=== PATIENT | female | born 1960 | race African-American/Black ===

== ENCOUNTER 2021-05-03 11:52 | Emergency (ER) | payer BC ==
[~2021-05-03] VITALS: Ht 157.5 cm; Wt 73.0 kg
[2021-05-03] MEDS ORDERED: VISCOUS LIDOCAINE 2% 15 ML UDC PO STA (12:15)
[2021-05-03] MEDS ORDERED: SODIUM CHLORIDE 0.9% 1,000 ML IV ONE (12:15)
[2021-05-03] MEDS ORDERED: FAMOTIDINE 20MG/2ML VIAL IV STA (12:15)
[2021-05-03] MEDS ORDERED: MAGNESIUM/ALUMINUM HYDROXIDE/SIMETHICONE 30ML UDC PO STA (12:15)
[2021-05-03] MEDS ORDERED: ONDANSETRON HCL 4MG/2ML INJ IV STA (12:15)
[2021-05-03 14:06] LABS: CLARITY URINE CLOUDY (CLEAR); COLOR URINE YELLOW (YELLOW); KETONES URINE NEGATIVE (NEGATIVE); LEUKOCYTE ESTERASE URINE 2+ (NEGATIVE); NITRITE URINE NEGATIVE (NEGATIVE); OCCULT BLOOD URINE NEGATIVE (NEGATIVE); PROTEIN URINE 1+ (NEGATIVE); SPECIFIC GRAVITY URINE 1.017 (1.005-1.030); UROBILINOGEN URINE 0.2 E.U./dL (0.2-1.0)
[2021-05-03 14:09] LABS: BASOPHILS % 0.2 % (0.0-2.0); EOSINOPHILS % 0.4 % (0.0-5.0); HEMATOCRIT. 33.4 % (36.0-48.0); LYMPHOCYTES % 14.6 % (20.0-50.0); MEAN CORPUSCULAR VOLUME 90.8 fL (81.0-99.0); MEAN PLATELET VOLUME 7.6 fl (7.4-10.4); MONOCYTES % 10.1 % (2.0-8.0); NEUTROPHILS % 74.7 % (40.0-76.0); PLATELET 423 x1000/uL (130-400); RED BLOOD CELL COUNT 3.67 mill/uL (4.2-5.4); RED CELL DISTRIBUTION WIDTH 13.9 % (11.6-14.6)
[2021-05-03 14:16] LABS: CHLORIDE 109 mEq/L (98-107)
[2021-05-03] MEDS ORDERED: ACETAMINOPHEN 325MG TABLET PO ONE (16:00)
[2021-05-03] MEDS ORDERED: CIPR-263 MT (16:01)
[2021-05-03 16:17] VITALS: BP 155/70
== END 2021-05-03 16:57 | disposition home or self-care (01) ==
LOC: ER 11:52
DX: N39.0 Urinary tract infection, site not specified (principal); R50.9 Fever, unspecified; R11.2 Nausea with vomiting, unspecified; J45.909 Unspecified asthma, uncomplicated; I10 Essential (primary) hypertension; Z20.822 Contact with and (suspected) exposure to COVID-19
CPT/HCPCS: 36415; 71045; 74176; 76705; 80053; 81003; 83690; 85025; 87086; 87106; 87186; 93005; 96361; 96374; 96375; 99285; C9803; J2405; J3490; J7030; U0003; U0005

== ENCOUNTER → 2021-08-17 | Outpatient (CLI) | payer BC ==
[~2021-08-17] MED LIST: CIPR-263 MT
[2021-08-17 13:14] LABS: CHLORIDE 108 mEq/L (98-107)
[2021-08-17 13:20] LABS: CLARITY URINE CLEAR (CLEAR); COLOR URINE YELLOW (YELLOW); KETONES URINE NEGATIVE (NEGATIVE); LEUKOCYTE ESTERASE URINE 1+ (NEGATIVE); NITRITE URINE NEGATIVE (NEGATIVE); OCCULT BLOOD URINE NEGATIVE (NEGATIVE); PROTEIN URINE NEGATIVE (NEGATIVE); UROBILINOGEN URINE 0.2 E.U./dL (0.2-1.0)
== END | disposition home or self-care (01) ==
LOC: LAB 12:44
PROVIDERS: ATTEND Internal Medicine
DX: E78.5 Hyperlipidemia, unspecified (principal); R73.09 Other abnormal glucose; E55.9 Vitamin D deficiency, unspecified; N39.0 Urinary tract infection, site not specified
CPT/HCPCS: 36415; 80053; 81003; 82306; 83036; 84443

== ENCOUNTER → 2022-09-22 | Outpatient (CLI) | payer BC ==
[~2022-09-22] MED LIST changes: +ALBU18HF2 IH; +CELE200C PO; +HYDR-4005 PO; +LEVO150T8 PO; +PROT40 PO; +TIZA4CAP6 PO; +ZOLP12.52 PO
[2022-09-22 11:29] LABS: BASOPHILS % 0.3 % (0.0-2.0); HEMATOCRIT. 40.3 % (36.0-48.0); HEMOGLOBIN. 13.4 g/dL (12.0-16.0); LYMPHOCYTES % 35.1 % (20.0-50.0); MEAN CORPUSCULAR HEMOGLOBIN 31.2 pg (28.0-32.0); MEAN CORPUSCULAR VOLUME 94.1 fL (81.0-99.0); MEAN PLATELET VOLUME 7.3 fl (7.4-10.4); MONOCYTES % 9.2 % (2.0-8.0); NEUTROPHILS % 54.4 % (40.0-76.0); PLATELET 300 x1000/uL (130-400); RED BLOOD CELL COUNT 4.29 mill/uL (4.2-5.4); RED CELL DISTRIBUTION WIDTH 13.6 % (11.6-14.6)
[2022-09-22 11:37] LABS: CHLORIDE 109 mEq/L (98-107)
[2022-09-22 11:39] LABS: PARTIAL THROMBOPLASTIN TIME 31.2 sec (23.4-31.0); PROTHROMBIN TIME 10.5 sec (9.6-11.0)
[2022-09-22 11:45] LABS: CLARITY URINE CLEAR (CLEAR); COLOR URINE YELLOW (YELLOW); KETONES URINE TRACE (NEGATIVE); LEUKOCYTE ESTERASE URINE NEGATIVE (NEGATIVE); NITRITE URINE NEGATIVE (NEGATIVE); OCCULT BLOOD URINE NEGATIVE (NEGATIVE); PH URINE 5.5 (4.5-8.0); PROTEIN URINE NEGATIVE (NEGATIVE); UROBILINOGEN URINE 0.2 E.U./dL (0.2-1.0)
== END | disposition home or self-care (01) ==
LOC: LAB 10:47
PROVIDERS: ATTEND Internal Medicine
DX: Z01.812 Encounter for preprocedural laboratory examination (principal); J98.11 Atelectasis; E78.5 Hyperlipidemia, unspecified; N39.0 Urinary tract infection, site not specified; R73.09 Other abnormal glucose
CPT/HCPCS: 36415; 71046; 80053; 81003; 83036; 85025

== ENCOUNTER 2022-09-28 10:27 | Day surgery (SDC) | payer BC ==
[~2022-09-28] VITALS: Ht 157.5 cm; Wt 74.8 kg
[~2022-09-28 10:27] MED LIST changes: -ALBU18HF2 IH; -CELE200C PO; -HYDR-4005 PO; -LEVO150T8 PO; -PROT40 PO; -TIZA4CAP6 PO; -ZOLP12.52 PO
[2022-09-28] MEDS ORDERED: LACTATED RINGERS 1,000 ML IV SCH (11:25)
[2022-09-28] MEDS ORDERED: KETOROLAC 30MG/ML VIAL ONE (11:37)
[2022-09-28] MEDS ORDERED: ROPIVACAINE HCL 1% 20 ML VIAL EPI ONE (11:37)
[2022-09-28] MEDS ORDERED: EPINEPHRINE 1:1000 1 MG/ML AMP ONE (11:37)
[2022-09-28] MEDS ORDERED: LIDOCAINE HCL/EPINEPHRINE 1%-EPI 1:100,000 20 ML VIAL ONE (11:40)
[2022-09-28] MEDS ORDERED: CELE200C PO (11:48)
[2022-09-28] MEDS ORDERED: LEVO150T8 PO (11:48)
[2022-09-28] MEDS ORDERED: ZOLP12.52 PO (11:48)
[2022-09-28] MEDS ORDERED: TIZA4CAP6 PO (11:48)
[2022-09-28] MEDS ORDERED: HYDR-4005 PO ×2 (11:48)
[2022-09-28] MEDS ORDERED: PROT40 PO (11:48)
[2022-09-28] MEDS ORDERED: ALBU18HF2 IH (11:48)
[2022-09-28] MEDS ORDERED: ONDANSETRON HCL 4MG/2ML INJ ONE (12:48)
[2022-09-28] MEDS ORDERED: DEXAMETHASONE 4MG/ML 1ML VIAL ONE (12:48)
[2022-09-28] MEDS ORDERED: LIDOCAINE HCL 1% 10 MG/ML 10ML VIAL ONE (12:48)
[2022-09-28] MEDS ORDERED: PROPOFOL 200MG/20ML VIAL IV ONE (12:49)
[2022-09-28] MEDS ORDERED: FENTANYL CITRATE/PF 50MCG/ML 2ML VIAL ONE (12:49)
[2022-09-28] MEDS ORDERED: MIDAZOLAM HCL 2 MG/2 ML VIAL ONE (12:49)
[2022-09-28] MEDS ORDERED: VANCOMYCIN HCL 1 GM/VIAL ONE (13:30)
[2022-09-28] MEDS ORDERED: HYDROMORPHONE HCL/PF 2MG/ML CPJ ONE (13:39)
[2022-09-28] MEDS ORDERED: NALOXONE HCL 0.4 MG/ML 1ML VIAL ONE (14:43)
[2022-09-28] MEDS ORDERED: LABETALOL 5MG/ML SYR 20 MG/4 ML SYRINGE IV PRN (14:45)
[2022-09-28] MEDS ORDERED: MEPERIDINE HCL/PF 25MG/ML CPJ IV PRN (14:45)
[2022-09-28] MEDS ORDERED: ONDANSETRON HCL 4MG/2ML INJ IV PRN (14:45)
[2022-09-28] MEDS: HYDROMORPHONE HCL/PF 2MG/ML CPJ IV PRN ×5 (15:00→15:53)
[2022-09-28] MEDS ORDERED: KETOROLAC 30MG/ML VIAL IV NR (15:45)
[2022-09-28] MEDS ORDERED: HYDROCODONE/ACETAMINOPHEN 10/325MG TABLET PO PRN (15:45)
[2022-09-28] MEDS ORDERED: HYDROMORPHONE HCL/PF 2MG/ML CPJ IV PRN (16:15)
[2022-09-28 16:38] VITALS: BP 148/74
== END 2022-09-28 17:30 | disposition home or self-care (01) ==
LOC: OR 10:27
PROVIDERS: ATTEND Student in an Organized Health Care Education/Training Program
DX: S52.131A Displaced fracture of neck of right radius, initial encounter for closed fracture (principal); J45.909 Unspecified asthma, uncomplicated; Z79.899 Other long term (current) drug therapy; Z98.890 Other specified postprocedural states; X58.XXXA Exposure to other specified factors, initial encounter; Y93.89 Activity, other specified; Y92.89 Other specified places as the place of occurrence of the external cause; Y99.8 Other external cause status
CPT/HCPCS: 24666; 73070; 76000; 88307; 88311; J1100; J1170; J1885; J2250; J2310; J2405; J2704; J3010; J3370; J3490; 87426; A4565; C9803; J2795; C1776

== ENCOUNTER → 2022-10-10 | Outpatient (CLI) | payer BC ==
[~2022-10-10] MED LIST changes: +ALBU18HF2 IH; +CELE200C PO; +HYDR-4005 PO; +LEVO150T8 PO; +PROT40 PO; +TIZA4CAP6 PO; +ZOLP12.52 PO
== END | disposition home or self-care (01) ==
LOC: RAD 13:32
PROVIDERS: ATTEND Student in an Organized Health Care Education/Training Program
DX: S52.131A Displaced fracture of neck of right radius, initial encounter for closed fracture (principal); X58.XXXA Exposure to other specified factors, initial encounter; Y93.89 Activity, other specified; Y92.89 Other specified places as the place of occurrence of the external cause; Y99.8 Other external cause status; Z98.890 Other specified postprocedural states
CPT/HCPCS: 73080

== ENCOUNTER → 2022-11-15 | Outpatient (CLI) | payer BC ==
[2022-11-15 11:46] LABS: BASOPHILS % 0.3 % (0.0-2.0); EOSINOPHILS % 1.2 % (0.0-5.0); HEMATOCRIT. 36.5 % (36.0-48.0); LYMPHOCYTES % 46.3 % (20.0-50.0); MEAN CORPUSCULAR HEMOGLOBIN 30.7 pg (28.0-32.0); MEAN CORPUSCULAR VOLUME 93.3 fL (81.0-99.0); MEAN PLATELET VOLUME 7.3 fl (7.4-10.4); MONOCYTES % 11.5 % (2.0-8.0); NEUTROPHILS % 40.7 % (40.0-76.0); PLATELET 332 x1000/uL (130-400); RED BLOOD CELL COUNT 3.91 mill/uL (4.2-5.4); RED CELL DISTRIBUTION WIDTH 14.1 % (11.6-14.6)
[2022-11-15 12:28] LABS: CHLORIDE 108 mEq/L (98-107)
[2022-11-17 09:07] LABS: % CD 3 POS. LYMPHOCYTES 79.8 % (57.5-86.2); % CD 4 POS. LYMPHOCYTES 27.1 % (30.8-58.5); % CD 8 POS. LYMPH 50.4 % (12.0-35.5); ABSOLUTE CD 3 1995 /uL (622-2402); ABSOLUTE CD 4 HELPER 678 /uL (359-1519); ABSOLUTE CD 8 SUPPRESSOR 1260 /uL (109-897); ABSOLUTE EOSINOPHILS 0.1 x10E3/uL (0.0-0.4); ABSOLUTE LYMPHOCYTES 2.5 x10E3/uL (0.7-3.1); ABSOLUTE MONOCYTES 0.6 x10E3/uL (0.1-0.9); BASOPHILS 0 % (Not Estab.); CD4/CD8 RATIO 0.54 (0.92-3.72); HEMATOCRIT 38.2 % (34.0-46.6); HEMOGLOBIN 12.2 g/dL (11.1-15.9); IMMATURE GRANULOCYTES 0 % (Not Estab.); LYMPHOCYTES 49 % (Not Estab.); MEAN CORPUSCULAR HEMOGLOBIN 30.4 pg (26.6-33.0); MEAN CORPUSCULAR HGB CONC. 31.9 g/dL (31.5-35.7); MEAN CORPUSCULAR VOLUME 95 fL (79-97); MONOCYTES 12 % (Not Estab.); NEUTROPHILS 38 % (Not Estab.); PLATELETS 340 x10E3/uL (150-450); RBC 4.01 x10E6/uL (3.77-5.28); RED CELL DISTRIBUTION WIDTH 12.8 % (11.7-15.4); WBC 5.2 x10E3/uL (3.4-10.8)
== END | disposition home or self-care (01) ==
LOC: LAB 10:39
PROVIDERS: ATTEND Internal Medicine
DX: S52.131A Displaced fracture of neck of right radius, initial encounter for closed fracture (principal); B20 Human immunodeficiency virus [HIV] disease; X58.XXXA Exposure to other specified factors, initial encounter; Y93.89 Activity, other specified; Y92.89 Other specified places as the place of occurrence of the external cause; Y99.8 Other external cause status; Z98.890 Other specified postprocedural states
CPT/HCPCS: 36415; 73080; 80053; 85025; 86359; 86360; 86592; 87536

== ENCOUNTER → 2023-10-24 | Outpatient (CLI) | payer BC ==
[2023-10-24 09:08] LABS: BASOPHILS % 0.3 % (0.0-2.0); EOSINOPHILS % 0.8 % (0.0-5.0); HEMATOCRIT. 35.8 % (36.0-48.0); HEMOGLOBIN. 12.1 g/dL (12.0-16.0); LYMPHOCYTES % 34.1 % (20.0-50.0); MEAN CORPUSCULAR HEMOGLOBIN 32.2 pg (28.0-32.0); MEAN CORPUSCULAR HGB CONC 33.7 g/dL (31.0-37.0); MEAN CORPUSCULAR VOLUME 95.5 fL (81.0-99.0); MEAN PLATELET VOLUME 7.7 fl (7.4-10.4); MONOCYTES % 12.9 % (2.0-8.0); NEUTROPHILS % 51.9 % (40.0-76.0); PLATELET 353 x1000/uL (130-400); RED BLOOD CELL COUNT 3.75 mill/uL (4.2-5.4); RED CELL DISTRIBUTION WIDTH 14.5 % (11.6-14.6); WHITE BLOOD COUNT 4.7 x1000/uL (4.5-11.0)
[2023-10-24 09:25] LABS: ALANINE AMINOTRANSFERASE 17 IU/L (10-49); ALBUMIN 4.4 g/dL (3.2-4.8); ASPARTATE AMINOTRANSFERASE 19 IU/L (<34); BILIRUBIN DIRECT 0.2 mg/dL (<=3.0); BILIRUBIN TOTAL 0.6 mg/dL (0.1-1.0); CALCIUM 9.2 mg/dL (8.7-10.4); CARBON DIOXIDE 25 mEq/L (21-32); CHLORIDE 110 mEq/L (98-107); CHOLESTEROL 199 mg/dL (<200); CREATININE 0.8 mg/dL (0.6-1.0); GLUCOSE 83 mg/dL (70-105); HDL CHOLESTEROL 87 mg/dL (>65); LDL CHOLESTEROL 89 mg/dL (5-100); PHOSPHORUS 3.2 mg/dL (2.5-4.9); POTASSIUM 4.5 mEq/L (3.5-5.1); SODIUM 140 mEq/L (136-145); THYROID STIMULATING HORMONE < 0.10 uIU/mL (0.55-4.78); TRIGLYCERIDE 90 mg/dL (0-150); UREA NITROGEN BLOOD 32 mg/dL (9-23)
[2023-10-25 09:06] LABS: VITAMIN D 25-OH 25.7 ng/mL (30.0-100.0)
[2023-10-25 11:28] LABS: CLARITY URINE CLEAR (CLEAR); COLOR URINE YELLOW (YELLOW); GLUCOSE URINE NEGATIVE (NEGATIVE); KETONES URINE NEGATIVE (NEGATIVE); LEUKOCYTE ESTERASE URINE TRACE (NEGATIVE); NITRITE URINE POSITIVE (NEGATIVE); OCCULT BLOOD URINE NEGATIVE (NEGATIVE); PROTEIN URINE NEGATIVE (NEGATIVE); SPECIFIC GRAVITY URINE 1.017 (1.005-1.030); UROBILINOGEN URINE 0.2 E.U./dL (0.2-1.0)
[2023-10-25 12:28] LABS: SQUAMOUS EPITHELIAL CELL URINE 1+ /lpf (RARE/1+)
[2023-10-25 12:29] LABS: BACTERIA URINE 4+; RBC URINE 0-2 /hpf (0-2)
== END | disposition home or self-care (01) ==
LOC: MRI 07:57
PROVIDERS: ATTEND Internal Medicine
DX: M25.421 Effusion, right elbow (principal); M19.021 Primary osteoarthritis, right elbow; R60.0 Localized edema; I10 Essential (primary) hypertension; D64.9 Anemia, unspecified; R73.09 Other abnormal glucose; E55.9 Vitamin D deficiency, unspecified; N39.0 Urinary tract infection, site not specified; E03.9 Hypothyroidism, unspecified; E78.5 Hyperlipidemia, unspecified; M79.89 Other specified soft tissue disorders; Z96.621 Presence of right artificial elbow joint
CPT/HCPCS: 36415; 73080; 73221; 80053; 80061; 80069; 80076; 81003; 82306; 83036; 84132; 84442; 84443; 84481; 85025; 86430

== ENCOUNTER → 2023-10-29 | Outpatient (CLI) | payer BC | END | disposition home or self-care (01) | LOC: LAB 15:23 | PROVIDERS: ATTEND Student in an Organized Health Care Education/Training Program | DX: Z96.621 Presence of right artificial elbow joint (principal) | CPT/HCPCS: 36415; 85651; 86140 ==

== ENCOUNTER → 2023-11-06 | Outpatient (CLI) | payer BC ==
[2023-11-06 11:23] LABS: BASOPHILS % 0.3 % (0.0-2.0); EOSINOPHILS % 0.2 % (0.0-5.0); HEMATOCRIT. 36.8 % (36.0-48.0); HEMOGLOBIN. 12.1 g/dL (12.0-16.0); LYMPHOCYTES % 28.3 % (20.0-50.0); MEAN CORPUSCULAR HEMOGLOBIN 31.6 pg (28.0-32.0); MEAN CORPUSCULAR HGB CONC 32.9 g/dL (31.0-37.0); MEAN CORPUSCULAR VOLUME 95.9 fL (81.0-99.0); MEAN PLATELET VOLUME 7.5 fl (7.4-10.4); MONOCYTES % 8.4 % (2.0-8.0); NEUTROPHILS % 62.8 % (40.0-76.0); PLATELET 321 x1000/uL (130-400); RED BLOOD CELL COUNT 3.84 mill/uL (4.2-5.4); RED CELL DISTRIBUTION WIDTH 14.1 % (11.6-14.6); WHITE BLOOD COUNT 5.1 x1000/uL (4.5-11.0)
[2023-11-06 11:29] LABS: CLARITY URINE CLEAR (CLEAR); COLOR URINE YELLOW (YELLOW); GLUCOSE URINE NEGATIVE (NEGATIVE); KETONES URINE NEGATIVE (NEGATIVE); LEUKOCYTE ESTERASE URINE NEGATIVE (NEGATIVE); NITRITE URINE NEGATIVE (NEGATIVE); OCCULT BLOOD URINE NEGATIVE (NEGATIVE); PH URINE 5.5 (4.5-8.0); PROTEIN URINE NEGATIVE (NEGATIVE); SPECIFIC GRAVITY URINE 1.013 (1.005-1.030); UROBILINOGEN URINE 0.2 E.U./dL (0.2-1.0)
[2023-11-06 11:30] LABS: INR 0.9; PARTIAL THROMBOPLASTIN TIME 29.7 sec (23.4-31.0)
[2023-11-06 11:34] LABS: CALCIUM 8.8 mg/dL (8.7-10.4); CARBON DIOXIDE 25 mEq/L (21-32); CHLORIDE 103 mEq/L (98-107); CREATININE 0.8 mg/dL (0.6-1.0); GLUCOSE 90 mg/dL (70-105); POTASSIUM 4.1 mEq/L (3.5-5.1); SODIUM 135 mEq/L (136-145); UREA NITROGEN BLOOD 21 mg/dL (9-23)
== END | disposition home or self-care (01) ==
LOC: RAD 10:49
PROVIDERS: ATTEND Internal Medicine
DX: Z01.818 Encounter for other preprocedural examination (principal); E78.5 Hyperlipidemia, unspecified; N39.0 Urinary tract infection, site not specified; R73.09 Other abnormal glucose; D64.9 Anemia, unspecified; M43.22 Fusion of spine, cervical region; Z96.611 Presence of right artificial shoulder joint
CPT/HCPCS: 36415; 71046; 80048; 81003; 83036; 85025

== ENCOUNTER 2023-11-09 11:41 | Day surgery (SDC) | payer BC ==
[~2023-11-09] VITALS: Ht 157.5 cm; Wt 59.9 kg
[2023-11-09] MEDS ORDERED: LACTATED RINGERS 1,000 ML IV SCH (12:30)
[2023-11-09] MEDS ORDERED: MIDAZOLAM HCL 2 MG/2 ML VIAL ONE (13:10)
[2023-11-09] MEDS ORDERED: PROPOFOL 200MG/20ML VIAL IV ONE (13:12)
[2023-11-09] MEDS ORDERED: LIDOCAINE HCL/EPINEPHRINE 1%-EPI 1:100,000 20 ML VIAL ONE (13:16)
[2023-11-09] MEDS ORDERED: POLYMYXIN B SULFATE 500000 UNITS/VIAL ONE (13:16)
[2023-11-09] MEDS ORDERED: BUPIVACAINE HCL/PF 0.5% (5MG/ML) 10ML ONE (13:17)
[2023-11-09] MEDS ORDERED: BACITRACIN 14GM TUBE TOP ONE (13:17)
[2023-11-09] MEDS ORDERED: VANCOMYCIN HCL 1 GM/VIAL ONE (13:18)
[2023-11-09] MEDS ORDERED: SUCCINYLCHOLINE CHLORIDE 200MG/10ML IV ONE (13:22)
[2023-11-09] MEDS ORDERED: DEXAMETHASONE 4MG/ML 1ML VIAL ONE (13:22)
[2023-11-09] MEDS ORDERED: ONDANSETRON HCL 4MG/2ML INJ ONE (13:22)
[2023-11-09] MEDS ORDERED: FENTANYL CITRATE/PF 50MCG/ML 2ML VIAL ONE ×3 (13:23→14:25)
[2023-11-09] MEDS ORDERED: LIDOCAINE HCL 1% 20ML VIAL (Pyxis) INJ ONE (13:23)
[2023-11-09] MEDS ORDERED: ONDANSETRON HCL 4MG/2ML INJ IV PRN (13:45)
[2023-11-09] MEDS ORDERED: MEPERIDINE HCL/PF 25MG/ML CPJ IV PRN (13:45)
[2023-11-09] MEDS ORDERED: SKIN ADHESIVE 0.7 GM EA TOP ONE (13:57)
[2023-11-09] MEDS ORDERED: FENTANYL CITRATE/PF 50MCG/ML 2ML VIAL IV PRN (13:58)
[2023-11-09] MEDS: HYDROMORPHONE HCL/PF 2MG/ML CPJ IV PRN (14:43)
[2023-11-09 16:08] VITALS: BP 99/66; PULSE 68; RESP 20
== END 2023-11-09 17:20 | disposition home or self-care (01) ==
LOC: OR 11:41
PROVIDERS: ATTEND Student in an Organized Health Care Education/Training Program
DX: T84.84XA Pain due to internal orthopedic prosthetic devices, implants and grafts, initial encounter (principal); E03.9 Hypothyroidism, unspecified; J45.909 Unspecified asthma, uncomplicated; Z79.899 Other long term (current) drug therapy; Z98.890 Other specified postprocedural states; X58.XXXA Exposure to other specified factors, initial encounter; Y93.89 Activity, other specified; Y92.89 Other specified places as the place of occurrence of the external cause; Y99.8 Other external cause status
CPT/HCPCS: 87075; 87070; 87205; 88300; 73070; 76000; 20680; J3010; J3490 ×4; J1100; J2250; J2405; J2704; J0330; J3370; J1170; J7030; Q4051

== ENCOUNTER → 2023-12-06 | Outpatient (CLI) | payer BC ==
[~2023-12-06] MED LIST changes: -CIPR-263 MT; -TIZA4CAP6 PO
== END | disposition home or self-care (01) ==
LOC: MRI 08:09
PROVIDERS: ATTEND Internal Medicine
DX: M94.261 Chondromalacia, right knee (principal); M47.817 Spondylosis without myelopathy or radiculopathy, lumbosacral region; M48.061 Spinal stenosis, lumbar region without neurogenic claudication; M51.26 Other intervertebral disc displacement, lumbar region; M25.561 Pain in right knee
CPT/HCPCS: 72148; 73721

== ENCOUNTER → 2024-07-15 | Outpatient (CLI) | payer BC ==
[~2024-07-15] MED LIST changes: +CEL200 PO; -CELE200C PO
[2024-07-15 14:13] LABS: BASOPHILS % 0.3 % (0.0-2.0); EOSINOPHILS % 0.9 % (0.0-5.0); HEMATOCRIT. 38.1 % (36.0-48.0); HEMOGLOBIN. 12.2 g/dL (12.0-16.0); LYMPHOCYTES % 38.9 % (20.0-50.0); MEAN CORPUSCULAR HEMOGLOBIN 30.5 pg (28.0-32.0); MEAN CORPUSCULAR HGB CONC 32.1 g/dL (31.0-37.0); MEAN CORPUSCULAR VOLUME 95.1 fL (81.0-99.0); MONOCYTES % 9.8 % (2.0-8.0); NEUTROPHILS % 50.1 % (40.0-76.0); PLATELET 279 x1000/uL (130-400); RED CELL DISTRIBUTION WIDTH 13.8 % (11.6-14.6); WHITE BLOOD COUNT 4.6 x1000/uL (4.5-11.0)
[2024-07-15 14:56] LABS: ERYTHROCYTE SEDIMENTATION RATE 10 mm/hr (0-30)
== END | disposition home or self-care (01) ==
LOC: CT 12:31
PROVIDERS: ATTEND Student in an Organized Health Care Education/Training Program
DX: M19.012 Primary osteoarthritis, left shoulder (principal); T84.038A Mechanical loosening of other internal prosthetic joint, initial encounter; Z96.619 Presence of unspecified artificial shoulder joint; X58.XXXA Exposure to other specified factors, initial encounter
CPT/HCPCS: 36415; 73200; 85025; 85651; 86140

== ENCOUNTER → 2024-07-25 | Outpatient (CLI) | payer BC | END | disposition home or self-care (01) | LOC: NM 07:54 | PROVIDERS: ATTEND Student in an Organized Health Care Education/Training Program | DX: M47.817 Spondylosis without myelopathy or radiculopathy, lumbosacral region (principal); Z96.612 Presence of left artificial shoulder joint | CPT/HCPCS: 78315; A9503 ==

== ENCOUNTER → 2024-09-01 | Outpatient (CLI) | payer BC | END | disposition home or self-care (01) | LOC: CT 08:56 | DX: M19.212 Secondary osteoarthritis, left shoulder (principal); Z96.612 Presence of left artificial shoulder joint | CPT/HCPCS: 73200 ==

== ENCOUNTER → 2024-09-05 | Outpatient (CLI) | payer BC ==
[2024-09-05 07:00] LABS: CLARITY URINE CLEAR (CLEAR); COLOR URINE YELLOW (YELLOW); GLUCOSE URINE NEGATIVE (NEGATIVE); KETONES URINE NEGATIVE (NEGATIVE); LEUKOCYTE ESTERASE URINE NEGATIVE (NEGATIVE); NITRITE URINE NEGATIVE (NEGATIVE); OCCULT BLOOD URINE NEGATIVE (NEGATIVE); PROTEIN URINE NEGATIVE (NEGATIVE); SPECIFIC GRAVITY URINE 1.019 (1.005-1.030); UROBILINOGEN URINE 0.2 E.U./dL (0.2-1.0)
[2024-09-05 07:19] LABS: BASOPHILS % 0.3 % (0.0-2.0); EOSINOPHILS % 0.9 % (0.0-5.0); HEMATOCRIT. 35.5 % (36.0-48.0); HEMOGLOBIN. 11.7 g/dL (12.0-16.0); LYMPHOCYTES % 33.4 % (20.0-50.0); MEAN CORPUSCULAR HGB CONC 33.1 g/dL (31.0-37.0); MEAN CORPUSCULAR VOLUME 96.6 fL (81.0-99.0); MEAN PLATELET VOLUME 7.6 fl (7.4-10.4); MONOCYTES % 11.7 % (2.0-8.0); NEUTROPHILS % 53.7 % (40.0-76.0); PLATELET 256 x1000/uL (130-400); RED BLOOD CELL COUNT 3.67 mill/uL (4.2-5.4); RED CELL DISTRIBUTION WIDTH 14.3 % (11.6-14.6); WHITE BLOOD COUNT 4.9 x1000/uL (4.5-11.0)
[2024-09-05 07:24] LABS: CHLORIDE 110 mEq/L (98-107)
[2024-09-05 07:25] LABS: CARBON DIOXIDE 26 mEq/L (21-32); SODIUM 140 mEq/L (136-145)
[2024-09-05 07:26] LABS: CALCIUM 9.5 mg/dL (8.7-10.4)
[2024-09-05 07:27] LABS: INR 0.9; PARTIAL THROMBOPLASTIN TIME 28.4 sec (23.4-31.0); PROTHROMBIN TIME 10.1 sec (9.6-11.0)
[2024-09-05 07:30] LABS: CREATININE 0.9 mg/dL (0.6-1.0); GLUCOSE 88 mg/dL (70-105)
[2024-09-05 07:31] LABS: UREA NITROGEN BLOOD 35 mg/dL (9-23)
[2024-09-05 07:32] LABS: ALANINE AMINOTRANSFERASE 20 IU/L (10-49); ALBUMIN 4.3 g/dL (3.2-4.8); ASPARTATE AMINOTRANSFERASE 26 IU/L (<34)
[2024-09-05 07:33] LABS: BILIRUBIN TOTAL 0.6 mg/dL (0.1-1.0); PROTEIN TOTAL 6.7 g/dL (6.0-8.3)
[2024-09-05 07:35] LABS: THYROID STIMULATING HORMONE < 0.10 uIU/mL (0.55-4.78)
[2024-09-06 08:11] LABS: T4 THYROXINE 9.4 ug/dL (4.5-12.0); VITAMIN D 25-OH 28.1 ng/mL (30.0-100.0)
== END | disposition home or self-care (01) ==
LOC: LAB 06:24
PROVIDERS: ATTEND Internal Medicine
DX: Z01.818 Encounter for other preprocedural examination (principal); I10 Essential (primary) hypertension; N39.0 Urinary tract infection, site not specified; D64.9 Anemia, unspecified; D51.9 Vitamin B12 deficiency anemia, unspecified; R73.01 Impaired fasting glucose; E55.9 Vitamin D deficiency, unspecified; E78.5 Hyperlipidemia, unspecified; E03.9 Hypothyroidism, unspecified
CPT/HCPCS: 36415; 71046; 80053; 81003; 82306; 83036; 84436; 84443; 85025

== ENCOUNTER 2024-09-10 09:46 | Inpatient (IN) | payer SELFPAY ==
[~2024-09-10] VITALS: Ht 157.5 cm; Wt 54.9 kg
[~2024-09-10 09:46] MED LIST changes: -CEL200 PO; +CITA20TA19 PO; -HYDR-4005 PO; -LEVO150T8 PO; +LEVO50TA8 PO; +LIDOCAINE HCL/EPINEPHRINE 1%-EPI 1:100,000 20ML VIAL ONE; +OXYC-104 PO; +POLYMYXIN B SULFATE 500000 UNITS/VIAL ONE; +SKIN ADHESIVE 0.7 GM EA TOP ONE; +VANCOMYCIN HCL 1GM VIAL ONE
[2024-09-10] MEDS ORDERED: ROPIVACAINE HCL 1% 20 ML VIAL EPI ONE (10:26)
[2024-09-10] MEDS: LACTATED RINGERS 1,000 ML IV SCH (10:36)
[2024-09-10] MEDS ORDERED: HYDROMORPHONE HCL/PF 2MG/ML INJ IV PRN (10:45)
[2024-09-10] MEDS ORDERED: CEFAZOLIN 1000MG PREMIX 50 ML IV NR (11:30)
[2024-09-10] MEDS ORDERED: ALBUTEROL (0.083%) 2.5MG/3ML NEB HHN NR (11:30)
[2024-09-10] MEDS ORDERED: ACETAMINOPHEN 325MG TABLET PO PRN (11:30)
[2024-09-10] MEDS ORDERED: HYDROCODONE/ACETAMINOPHEN 5/325MG TABLET PO PRN (11:30)
[2024-09-10] MEDS ORDERED: ONDANSETRON HCL 4MG/2ML INJ IV PRN (11:30)
[2024-09-10] MEDS ORDERED: TRANEXAMIC ACID 1000MG PREMIX 200 ML IV ONE ×2 (11:40→13:56)
[2024-09-10] MEDS ORDERED: NALOXONE HCL 0.4MG/ML VIAL IV PRN (13:00)
[2024-09-10] MEDS ORDERED: VANCOMYCIN HCL 1GM VIAL ONE (13:06)
[2024-09-10] MEDS: HYDROMORPHONE HCL/PF 1MG/ML INJ IV PRN (15:00)
[2024-09-10 15:05] LABS: BASOPHILS % 0.2 % (0.0-2.0); EOSINOPHILS % 0.4 % (0.0-5.0); HEMATOCRIT. 32.8 % (36.0-48.0); HEMOGLOBIN. 10.8 g/dL (12.0-16.0); LYMPHOCYTES % 31.2 % (20.0-50.0); MEAN CORPUSCULAR HEMOGLOBIN 31.3 pg (28.0-32.0); MEAN CORPUSCULAR HGB CONC 32.9 g/dL (31.0-37.0); MEAN CORPUSCULAR VOLUME 95.1 fL (81.0-99.0); MEAN PLATELET VOLUME 7.6 fl (7.4-10.4); MONOCYTES % 6.9 % (2.0-8.0); NEUTROPHILS % 61.3 % (40.0-76.0); PLATELET 245 x1000/uL (130-400); RED BLOOD CELL COUNT 3.44 mill/uL (4.2-5.4); RED CELL DISTRIBUTION WIDTH 14.1 % (11.6-14.6); WHITE BLOOD COUNT 5.3 x1000/uL (4.5-11.0)
[2024-09-10 15:07] LABS: CHLORIDE 113 mEq/L (98-107); POTASSIUM 3.8 mEq/L (3.5-5.1); SODIUM 143 mEq/L (136-145)
[2024-09-10 15:08] LABS: CALCIUM 8.9 mg/dL (8.7-10.4); CARBON DIOXIDE 20 mEq/L (21-32)
[2024-09-10 15:13] LABS: CREATININE 0.9 mg/dL (0.6-1.0); GLUCOSE 101 mg/dL (70-105); UREA NITROGEN BLOOD 33 mg/dL (9-23)
[2024-09-10 15:30] VITALS: BP 138/68; PULSE 70; RESP 16; TEMP 36.3068
[2024-09-10] MEDS: PANTOPRAZOLE 40MG DR TABLET PO SCH (15:56)
[2024-09-10] MEDS: ONDANSETRON HCL 4MG/2ML INJ IV PRN (15:57)
[2024-09-10 16:00] VITALS: BP 138/68; PULSE 70; TEMP 36.28068; O2SAT 97
[2024-09-10] MEDS: HYDROCODONE/ACETAMINOPHEN 10/325MG TABLET PO PRN (16:32)
[2024-09-10] MEDS: KETOROLAC 30MG/ML VIAL IV PRN (18:47)
[2024-09-10 20:00] VITALS: BP 115/63; PULSE 75; RESP 18; TEMP 35.78064; O2SAT 97
[2024-09-10] MEDS: SENNOSIDES/DOCUSATE SOD 8.6/50MG TABLET PO SCH (20:22)
[2024-09-10] MEDS: CEFAZOLIN 1000MG PREMIX 50 ML IV SCH (21:53)
[2024-09-10] MEDS: METOCLOPRAMIDE HCL 10MG/2ML VIAL IV SCH (21:54)
[2024-09-11] VITALS: BP 138/79; PULSE 69; RESP 18; TEMP 36.28068; O2SAT 98
[2024-09-11 04:00] VITALS: BP 141/70; PULSE 62; RESP 18; TEMP 36.28068; O2SAT 99
[2024-09-11] MEDS: LEVOTHYROXINE SODIUM 50MCG TABLET PO SCH (06:32)
[2024-09-11 08:00] VITALS: BP 124/67; PULSE 67; RESP 18; TEMP 36.78072; O2SAT 99
[2024-09-11] MEDS: CITALOPRAM HYDROBROMIDE 10MG TABLET PO SCH (08:45)
[2024-09-11] MEDS ORDERED: SULF1TAB48 MT (13:48)
[2024-09-11 15:17] VITALS: BP 126/60; PULSE 68; TEMP 98.2; O2SAT 99
[2024-09-11 16:00] VITALS: BP 119/63; PULSE 69; RESP 19; TEMP 36.50292; O2SAT 99
[2024-09-11 20:00] VITALS: BP 137/63; PULSE 82; RESP 18; TEMP 36.89184; O2SAT 95
== END 2024-09-11 22:07 | disposition home or self-care (01) | DRG 322 ==
LOC: OR 09:46 → 8EST 15:29
PROC: 0RPK0JZ Removal of Synthetic Substitute from Left Shoulder Joint, Open Approach (ICD-10-PCS; principal; 2024-09-10)
PROC: 0RRK0JZ Replacement of Left Shoulder Joint with Synthetic Substitute, Open Approach (ICD-10-PCS; 2024-09-10)
DX: T84.098A Other mechanical complication of other internal joint prosthesis, initial encounter (principal); G89.29 Other chronic pain; Y79.2 Prosthetic and other implants, materials and accessory orthopedic devices associated with adverse incidents; Z96.612 Presence of left artificial shoulder joint
CPT/HCPCS: 36415; 73030; 76000; 80048; 85025; 86850; 86900; 87070; 87075; 88300; 88304; 97161; 97166; A4565; J0690; J1171; J1885; J2004; J2405; J2765; J2795; J3370; J3490; C1713; C1769; C1776

== ENCOUNTER → 2024-12-24 | Outpatient (CLI) | payer BC ==
[~2024-12-24] MED LIST changes: -LIDOCAINE HCL/EPINEPHRINE 1%-EPI 1:100,000 20ML VIAL ONE; -POLYMYXIN B SULFATE 500000 UNITS/VIAL ONE; -SKIN ADHESIVE 0.7 GM EA TOP ONE; +SULF1TAB48 MT; -VANCOMYCIN HCL 1GM VIAL ONE
== END | disposition home or self-care (01) ==
LOC: CT 10:53
DX: M25.812 Other specified joint disorders, left shoulder (principal); M25.512 Pain in left shoulder; Z96.612 Presence of left artificial shoulder joint; Z98.890 Other specified postprocedural states
CPT/HCPCS: 73030; 73200

== ENCOUNTER → 2024-12-29 | Outpatient (CLI) | payer BC ==
[2024-12-29 15:04] LABS: BASOPHILS % 0.3 % (0.0-2.0); HEMATOCRIT. 35.7 % (36.0-48.0); HEMOGLOBIN. 11.9 g/dL (12.0-16.0); LYMPHOCYTES % 34.7 % (20.0-50.0); MEAN CORPUSCULAR HEMOGLOBIN 30.5 pg (28.0-32.0); MEAN CORPUSCULAR HGB CONC 33.3 g/dL (31.0-37.0); MEAN CORPUSCULAR VOLUME 91.7 fL (81.0-99.0); MEAN PLATELET VOLUME 7.1 fl (7.4-10.4); MONOCYTES % 10.1 % (2.0-8.0); NEUTROPHILS % 53.9 % (40.0-76.0); PLATELET 327 x1000/uL (130-400); RED CELL DISTRIBUTION WIDTH 13.7 % (11.6-14.6); WHITE BLOOD COUNT 4.8 x1000/uL (4.5-11.0)
[2024-12-29 15:07] LABS: CHLORIDE 107 mEq/L (98-107); POTASSIUM 4.2 mEq/L (3.5-5.1); SODIUM 138 mEq/L (136-145)
[2024-12-29 15:08] LABS: CALCIUM 9.3 mg/dL (8.7-10.4); CARBON DIOXIDE 24 mEq/L (21-32)
[2024-12-29 15:13] LABS: CREATININE 0.8 mg/dL (0.6-1.0); GLUCOSE 80 mg/dL (70-105); UREA NITROGEN BLOOD 26 mg/dL (9-23)
[2024-12-29 15:14] LABS: C REACTIVE PROTEIN HIGH SENS 2.31 mg/l (<1.00)
[2024-12-29 15:15] LABS: ALANINE AMINOTRANSFERASE 19 IU/L (10-49); ALBUMIN 4.1 g/dL (3.2-4.8); ASPARTATE AMINOTRANSFERASE 23 IU/L (<34); BILIRUBIN TOTAL 0.6 mg/dL (0.1-1.0); PROTEIN TOTAL 7.1 g/dL (6.0-8.3)
[2024-12-29 15:52] LABS: ERYTHROCYTE SEDIMENTATION RATE 12 mm/hr (0-30)
== END | disposition home or self-care (01) ==
LOC: LAB 14:21
DX: M25.512 Pain in left shoulder (principal)
CPT/HCPCS: 36415; 80053; 85025; 85651; 86141

== ENCOUNTER → 2025-01-02 | Outpatient (CLI) | payer BC ==
[2025-01-02 12:03] LABS: INR 0.9; PARTIAL THROMBOPLASTIN TIME 27.3 sec (23.4-31.0); PROTHROMBIN TIME 9.8 sec (9.6-11.0)
[2025-01-02 12:26] LABS: CLARITY URINE CLEAR (CLEAR); COLOR URINE YELLOW (YELLOW); GLUCOSE URINE NEGATIVE (NEGATIVE); KETONES URINE NEGATIVE (NEGATIVE); LEUKOCYTE ESTERASE URINE NEGATIVE (NEGATIVE); NITRITE URINE NEGATIVE (NEGATIVE); OCCULT BLOOD URINE NEGATIVE (NEGATIVE); PROTEIN URINE NEGATIVE (NEGATIVE); SPECIFIC GRAVITY URINE 1.023 (1.005-1.030); UROBILINOGEN URINE 0.2 E.U./dL (0.2-1.0)
== END | disposition home or self-care (01) ==
LOC: LAB 11:06
PROVIDERS: ATTEND Internal Medicine
DX: Z01.818 Encounter for other preprocedural examination (principal); I10 Essential (primary) hypertension; R73.09 Other abnormal glucose; E55.9 Vitamin D deficiency, unspecified; N39.0 Urinary tract infection, site not specified
CPT/HCPCS: 36415; 71046; 81003; 82306; 83036; 84436; 84443

== ENCOUNTER → 2025-01-06 | Day surgery (SDC) | payer BC ==
[~2025-01-06] VITALS: Ht 157.5 cm; Wt 59.0 kg
[~2025-01-06] MED LIST changes: +BACITRACIN 14GM TUBE TOP ONE; +BUPIVACAINE HCL/PF 0.5% (5MG/ML) 10ML ONE; +LACTATED RINGERS 1,000 ML IV SCH; +LIDOCAINE HCL/EPINEPHRINE 1%-EPI 1:100,000 20ML VIAL ONE; +POLYMYXIN B SULFATE 500000 UNITS/VIAL ONE; +SKIN ADHESIVE 0.7 GM EA TOP ONE; -SULF1TAB48 MT; +VANCOMYCIN HCL 1GM VIAL ONE
== END | disposition home or self-care (01) ==
LOC: OR 05:55
DX: Z53.8 Procedure and treatment not carried out for other reasons (principal); Z79.890 Hormone replacement therapy; Z79.899 Other long term (current) drug therapy; Z98.890 Other specified postprocedural states
CPT/HCPCS: 93005; J0665; J2004; J3490; J3370

== ENCOUNTER → 2025-01-23 | Outpatient (CLI) | payer BC ==
[~2025-01-23] MED LIST changes: -BACITRACIN 14GM TUBE TOP ONE; -BUPIVACAINE HCL/PF 0.5% (5MG/ML) 10ML ONE; -LACTATED RINGERS 1,000 ML IV SCH; -LIDOCAINE HCL/EPINEPHRINE 1%-EPI 1:100,000 20ML VIAL ONE; -POLYMYXIN B SULFATE 500000 UNITS/VIAL ONE; -SKIN ADHESIVE 0.7 GM EA TOP ONE; +SULF1TAB48 MT; -VANCOMYCIN HCL 1GM VIAL ONE
== END | disposition home or self-care (01) ==
LOC: RAD 09:02
DX: S42.292A Other displaced fracture of upper end of left humerus, initial encounter for closed fracture (principal); X58.XXXA Exposure to other specified factors, initial encounter; Y93.89 Activity, other specified; Y92.89 Other specified places as the place of occurrence of the external cause; Y99.8 Other external cause status
CPT/HCPCS: 73030

== ENCOUNTER → 2025-02-23 | Outpatient (CLI) | payer BC | END | disposition home or self-care (01) | LOC: RAD 14:51 | DX: M25.521 Pain in right elbow (principal); Z98.890 Other specified postprocedural states | CPT/HCPCS: 73080 ==

== ENCOUNTER → 2025-03-16 | Outpatient (CLI) | payer BC | END | disposition home or self-care (01) | LOC: RAD 13:59 | DX: M43.22 Fusion of spine, cervical region (principal); Z96.612 Presence of left artificial shoulder joint; Z98.890 Other specified postprocedural states | CPT/HCPCS: 73030; 73060 ==

== ENCOUNTER → 2025-04-13 | Outpatient (CLI) | payer BC | END | disposition home or self-care (01) | LOC: RAD 13:53 | DX: M25.512 Pain in left shoulder (principal); Z96.612 Presence of left artificial shoulder joint | CPT/HCPCS: 73030; 73060 ==

== ENCOUNTER → 2025-04-24 | Outpatient (CLI) | payer BC | END | disposition home or self-care (01) | LOC: RAD 08:18 | DX: M85.89 Other specified disorders of bone density and structure, multiple sites (principal); M25.512 Pain in left shoulder; Z96.612 Presence of left artificial shoulder joint; Z98.890 Other specified postprocedural states | CPT/HCPCS: 73030; 73060; 73080 ==

== ENCOUNTER → 2025-05-12 | Outpatient (CLI) | payer BC | END | disposition home or self-care (01) | LOC: RAD 12:54 | DX: M25.512 Pain in left shoulder (principal); M79.602 Pain in left arm; Z96.612 Presence of left artificial shoulder joint | CPT/HCPCS: 73030; 73060 ==

== ENCOUNTER → 2025-05-19 | Outpatient (CLI) | payer BC | END | disposition home or self-care (01) | LOC: CT 10:07 | DX: M25.512 Pain in left shoulder (principal); Z96.612 Presence of left artificial shoulder joint | CPT/HCPCS: 73200 ==

== ENCOUNTER → 2025-06-05 | Outpatient (CLI) | payer BC | END | disposition home or self-care (01) | LOC: RAD 12:18 | DX: M25.512 Pain in left shoulder (principal); Z96.612 Presence of left artificial shoulder joint | CPT/HCPCS: 73030; 73060 ==

== ENCOUNTER → 2025-08-10 | Outpatient (CLI) | payer BC | END | disposition home or self-care (01) | LOC: RAD 14:04 | DX: M25.512 Pain in left shoulder (principal); Z96.612 Presence of left artificial shoulder joint | CPT/HCPCS: 73030; 73060 ==